=== PATIENT | male | born 1955 | race Caucasian/White ===

== ENCOUNTER 2020-02-01 13:33 | Outpatient (CLI) | payer OTHER | END 2020-02-01 13:35 | disposition home or self-care (01) | LOC: SONOGRAMA 13:33 | PROVIDERS: ATTEND Pathology Anatomic Pathology & Clinical Pathology | DX: E04.2 Nontoxic multinodular goiter (principal); E07.89 Other specified disorders of thyroid; E04.1 Nontoxic single thyroid nodule; D34 Benign neoplasm of thyroid gland; E04.8 Other specified nontoxic goiter ==